=== PATIENT | male | born 1955 | race Caucasian/White ===

== ENCOUNTER 2020-08-28 06:31 | Outpatient (NON) | payer OTHER, SELFPAY ==
[2020-08-28 18:38] LABS: SARS-CoV-2 RNA PCR Positive
== END 2020-08-28 06:32 ==
LOC: ANHCOVIDDT 06:34
PROVIDERS: PCP Family Medicine Adolescent Medicine; Visit Provider Family Medicine Adolescent Medicine
DX: U07.1 COVID-19 (principal)
CPT/HCPCS: C9803; U0003

== ENCOUNTER 2022-09-29 00:57 | Day surgery (SDC) | payer OTHER, SELFPAY ==
[2022-09-20 13:40] VITALS: BMI 33.5
[2022-09-29 08:18] VITALS: BP 123/62; PULSE 60; RESP 16; TEMP 36; O2SAT 97; BMI 33.4
[2022-09-29] MEDS: LACTATED RINGERS 1,000 ML 150 ML IV CONT (08:28)
[2022-09-29 09:11] LABS: Glucose Point of Care 108 mg/dl (65-105)
--- NOTE | 2022-09-29 09:14 | PM.HPGS ---
History of Present Illness History of Present Illness Consent: Risks, benefits, and alternatives have been discussed and questions answered. Patient agrees to proceed with procedure. Chief complaint: family hx colon ca, neoplasm screening Narrative: Kris Noguera is a 67 year old male Presents for screening colonoscopy. Patient's current weight appetite and bowel movements are normal. Patient denies abdominal pain. He has had no bleeding. Family history is significant that his mother had colon cancer. Patient's most recent colonoscopy 2013 apparently was unremarkable. Review of Systems Review of Systems: Review of systems noncontributory. [facility] Past Medical History Medical History Normal colonoscopy 11/08 Surgical History Surgical History History of inguinal hernia repair x3 History of shoulder surgery 2014, right, rotator cuff & SLAP tear Family History Family History Mother Carcinoma of colon Social History Social History (Updated 11/17/21 @ 08:01 by Marsha Lee MA) Smoking status: Never smoker Second hand tobacco smoke exposure: No Alcohol intake: current Alcohol use details: on occasion Substance use: never Substance use type: does not use Living arrangements: with family Occupation/Education: occupation Gender identity (if verbalized by the patient): Male Sexual Orientation (if Verbalized by the Patient): Straight or Heterosexual Spiritual care concerns: No Agree to blood products: Yes Meds Home Medications and Allergies Home Medications Medication Instructions Recorded Confirmed Type vitamin B complex 1 tablet PO DAILY 11/17/21 09/29/22 History baclofen 10 mg tablet See Rx Instructions .Route 04/25/22 09/29/22 Rx .COMPLEX #60 tabs simvastatin 40 mg tablet See Rx Instructions .Route 06/19/22 09/29/22 Rx .COMPLEX #90 tabs sitagliptin phosphate 100 mg 100 mg PO DAILY #30 tabs 06/20/22 09/29/22 Rx tablet (Januvia) terbinafine HCl 250 mg tablet 250 mg PO DAILY #90 tabs 08/03/22 09/29/22 Rx metformin 500 mg tablet,extended 2,000 mg PO DAILY #360 tabs 09/12/22 09/29/22 Rx release 24 hr indomethacin 50 mg capsule 50 mg PO BID #180 caps 09/13/22 09/29/22 Rx Vitamin B-6 100 mg PO DAILY 09/20/22 09/29/22 History Allergies Allergy/AdvReac Type Severity Reaction Status Date / Time No Known Drug Allergies Allergy Unknown unknown Verified 09/29/22 08:17 Vital Signs Vital Signs - 24 hr 09/29/22 08:18 Temperature 96.8 F L Pulse Rate 60 Respiratory Rate 16 Blood Pressure 123/62 Pulse Oximetry 97 Oxygen Delivery Room Air Exam Narrative: Physical exam reveals patient to be alert. Vital signs stable. HEENT exam is unremarkable. Patient is anicteric. Lungs are clear to auscultation and percussion. Heart is without murmur or extra sounds. Abdomen bowel sounds are present soft nontender with no hepatosplenomegaly. Digital external rectal exam is normal. Assessment and Plan Assessment and plan (1) Family history of colon cancer in mother: Code(s): Z80.0 - Family history of malignant neoplasm of digestive organs Status: Acute Assessment and Plan: Patient's mother had colon cancer. For this reason suggest screening colonoscopy now and consider this a 5 year intervals in the future.
[2022-09-29 10:06] VITALS: BP 115/60; PULSE 54; RESP 22; O2SAT 95
[2022-09-29 10:16] VITALS: BP 128/67; PULSE 55; RESP 15; O2SAT 96
[2022-09-29 10:25] VITALS: BP 130/66; PULSE 60; RESP 22; O2SAT 95
== END 2022-09-29 10:30 | disposition home or self-care (01) ==
PROVIDERS: PCP Family Medicine Adolescent Medicine; Visit Provider Internal Medicine Gastroenterology
PROC: 0DJD8ZZ Inspection of Lower Intestinal Tract, Via Natural or Artificial Opening Endoscopic (ICD-10-PCS; CPT 45378; principal; 2022-09-29 09:30)
DX: Z12.11 Encounter for screening for malignant neoplasm of colon (principal); K64.8 Other hemorrhoids; K57.30 Diverticulosis of large intestine without perforation or abscess without bleeding; Z80.0 Family history of malignant neoplasm of digestive organs; Z79.84 Long term (current) use of oral hypoglycemic drugs
CPT/HCPCS: 45378; 82948; J2704; J7120

== ENCOUNTER 2023-12-14 10:15 | Outpatient (CLI) | payer OTHER, SELFPAY ==
--- NOTE | ~2023-12-14 | US_ITS ---
EXAMINATION: US carotid duplex BI DATE: 12/14/2023 11:34 INDICATION: Visual disturbance and left carotid bruit TECHNIQUE: Grayscale, color Doppler, and pulsed Doppler images of the cervical carotid arteries were obtained. The degree of vessel stenosis is placed in one of the following categories: normal, <50%, 5 0-69%, >=70% but less than near-occlusion, near-occlusion, or total occlusion. Note that percent sten osis relative to normal distal artery lumen diameter is indirectly measured from velocity measurement s as described by Teodoro, et al. Radiology 2003; 229:340-346. COMPARISON: None. FINDINGS: RIGHT: The right common carotid artery (CCA) peak systolic velocity (PSV) is 134 cm/s. The right internal ca rotid artery (ICA) PSV is 97 cm/s. The right ICA end-diastolic velocity (EDV) is 28 cm/s. The right I CA/CCA PSV ratio is 1.5. Grayscale and color Doppler images yield an estimate of <50% diameter reduct ion from plaque in the ICA. The external carotid artery (ECA) PSV is 151 cm/s. There is antegrade ramón w in the right vertebral artery. LEFT: The left CCA PSV is 99 cm/s. The left ICA PSV is 86 cm/s. The left ICA EDV is 22 cm/s. The left ICA/C CA PSV ratio is 1.1. Grayscale and color Doppler images yield an estimate of <50% diameter reduction from plaque in the ICA. The ECA PSV is 81 cm/s. There is antegrade flow in the left vertebral artery. IMPRESSION: 1. <50% stenosis in the right internal carotid artery. 2. <50% stenosis in the left internal carotid artery. Reviewed, dictated and finalized at location A.
== END 2023-12-14 10:16 ==
PROVIDERS: PCP Family Medicine Adolescent Medicine; Visit Provider Family Medicine Adolescent Medicine
DX: H53.8 Other visual disturbances (principal); I65.23 Occlusion and stenosis of bilateral carotid arteries
CPT/HCPCS: 93880

== ENCOUNTER 2025-03-31 09:39 | Outpatient (CLI) | payer OTHER, SELFPAY ==
--- OUTSIDE RECORDS SUMMARY | 2025-03-31 09:50 | XMS_ITS | Patient Health Record ---
Author Organization [facility] Address [address] [place], [place] [id number] Care Team Providers Care Bar Tender Name Role Phone MACK Borja Unavailable Feliciano Darling Unavailable Unavailable Reason For Referral No Information Plan Of Treatment No Information Insurance Providers Payer Name Payer Address Payer Phone Subscriber Number Group Number Insured Name Patient Relationship to Insured Coverage Start Date Coverage End Date CLAIMS MANAGEMENT [facility] [address] [place] [id number] [phone] [id number] NICHOLE SAENZ Self - patient is the insured
--- OUTSIDE RECORDS SUMMARY | 2025-03-31 09:50 | XMS_ITS | Clinical Summary ---
Author Organization [facility] Address [address] [place] [address] Care Team Providers Care Platform Software Engineer Name Role Phone Feliciano Darling MD Primary Care Provider +1- [phone] Allergies No known active allergies Medications No known medications Social History Tobacco Use Types Packs/Day Years Used Date Smoking Tobacco: Never Smokeless Tobacco: Never Tobacco Cessation:Counseling Given: Not Answered Alcohol Use Standard Drinks/Week Comments Never 0 (1 standard drink = 0.6 oz pur e alcohol) Sex and Gender Information Value Date Recorded Sex Assigned at Not on file Legal Sex Male 7:47 PM CDT Gender Identity Not on file Sexual Orientation Not on file Last Filed Vital Signs Vital Sign Reading Time Taken Comments Blood Pressure 148/73 12/23/2022 3:16 PM CDT Pulse 56 12/23/2022 3:16 PM CDT Temperature 36.4 C (97.5 F) 12/23/2022 3:16 PM CDT Respiratory Rate 18 12/23/2022 3:16 PM CDT Oxygen Saturation 96% 12/23/2022 3:16 PM CDT Inhaled Oxygen Concentration - - Weight 102.1 kg (225 lb) 12/23/2022 3:16 PM CDT Height 180.3 cm (5' 11) 12/23/2022 3:16 PM CDT Body Mass Index 31.38 12/23/2022 3:16 PM CDT Plan of Treatment Health Maintenance Due Date Last Done Comments Colorectal Cancer Screening Colonoscopy (10 Years) 1955 Hepatitis C 1973 COVID-19 Vaccine ( season) 2024 06/28/2022, 01/17/2022, 06/26/2021, Additional history exists DTaP, Tdap and Td Vaccines (2 - Td or Tdap) 02/14/2026 02/15/2016 RSV Immunization or 60+ Years (1 - 1-dose 75+ series) 2030 Pneumococcal Vaccine: 50+ Years Completed 10/27/2021, 04/28/2020, 06/15/2019 Zoster Vaccines Completed 06/28/2022, 10/26, 11/05/2015 Meningococcal B Vaccine Aged Out No l onger eligible based on patient's age to complete this topic Meningococcal Vaccine Aged Out No wesley anurag eligible based on patient's age to complete this topic RSV Immunizations Under 20 Months Aged Out No longer eligible based on patient's age to complete this topic Insurance [employer] MEDICARE [place] [phone] Care Teams Platform Software Engineer Relationship Specialty Start Date End Date Feliciano Darling MD [address] [address] PCP - General FAMILY PRACTICE 12/23/22
== END 2025-03-31 09:40 | disposition home or self-care (01) ==
LOC: ANHAUDIO 09:39
PROVIDERS: PCP Family Medicine Adolescent Medicine; Visit Provider Family Medicine Adolescent Medicine
DX: H91.93 Unspecified hearing loss, bilateral (principal)
CPT/HCPCS: 92557; 92567

== ENCOUNTER 2025-07-25 16:15 | Emergency (ER) | payer OTHER, SELFPAY ==
[2025-07-25 16:17] VITALS: BP 144/54; PULSE 55; RESP 20; TEMP 36.3; O2SAT 99
--- OUTSIDE RECORDS SUMMARY | 2025-07-25 16:17 | XMS_ITS | Clinical Summary ---
Author Organization [facility] Address [address] [place] [address] Care Team Providers Care Chart Changer Name Role Phone Feliciano Darling MD Primary Care Provider +1- [phone] Allergies No known active allergies Medications No [...] Hepatitis C 1973 COVID-19 Vaccine ( season) 2025 06/28/2022, 01/17/2022, 06/26/2021, Additional history exists Influenza Adult (#1) 2025 04/28/2020, 06/01/2019, 05/28/2018, Additional history exists DTaP, Tdap and Td Vaccines (2 - Td or Tdap) 02/14/2026 02/15/2016 RSV Immunization or 60+ Years (1 - 1-dose 75+ series) 2030 Pneumococcal Vaccine: 50+ Years Completed 10/27/2021, 04/28/2020, 06/15/2019 Zoster Vaccines Completed 06/28/2022, 10/26, 11/05/2015 Hepatitis A Vaccines Aged Out No long er eligible based on patient's age to complete this topic Meningococcal B Vaccine Aged Out No l onger eligible based on patient's age to complete this topic Meningococcal Vaccine Aged Out No wesley anurag eligible based on patient's age to complete this topic RSV Immunizations Under 20 Months Aged Out No longer eligible based on patient's age to complete this topic Insurance [employer] MEDIC[employer] PART A [employer] Care Teams Chart Changer Relationship Specialty Start Date End Date Feliciano Darling MD [address] [address] PCP - General FAMILY PRACTICE 12/23/22
== END 2025-07-25 18:47 | disposition left against medical advice (07) ==
PROVIDERS: PCP Family Medicine Adolescent Medicine
DX: R10.32 Left lower quadrant pain (principal)
CPT/HCPCS: 99199